=== PATIENT | female | born 1960 | race Caucasian/White ===

== ENCOUNTER 2017-05-08 09:57 | Outpatient (CLI) | payer SELFPAY ==
[~2017-05-08] VITALS: Ht 154.9 cm; Wt 103.6 kg
[2017-05-08 09:57] VITALS: BP 115/79; PULSE 73; RESP 18; Ht 154.9 cm; Wt 103.6 kg
[2017-05-08] MEDS ORDERED: ONDA4TAB95 PO (10:05)
[2017-05-08] MEDS ORDERED: LOSA1TAB21 PO (10:05)
--- NOTE | 2017-05-08 12:26 | CONS ---
DATE OF SERVICE: 05/08/2017 SUBJECTIVE: The patient returns today after undergoing laparoscopic cholecystectomy at [facility] on 04/22/2017 for chronic cholecystitis and cholelithiasis. Overall, she is doing well. No major complaints. Minor complaints of feeling bloated and some discomfort to her back. No fever, no chills. She has been able to eat well and otherwise does not have any other complaints. OBJECTIVE: VITAL SIGNS: Afebrile. Vital signs are stable. ABDOMEN: Abdomen appears to be soft, nontender and nondistended. Her incisions appear to be healing well without any evidence of erythema, edema, discharge or hernia. There is no peritoneal signs of guarding. SKIN: Her skin appears to be pink and feels warm to touch. NEUROLOGIC: She is awake, alert and follows commands appropriately. IMPRESSION AND PLAN: Very pleasant 56-year-old lady status post laparoscopic cholecystectomy at [facility] on 05/02/2017 for chronic cholecystitis and cholelithiasis. She is doing well postoperatively without any obvious evidence of major complications or surgical site infections. I have recommended that she observes her symptoms and if you symptoms continue, for us to then do laboratory value checks, as well as imaging. She also asked me about hemorrhoids and I suggested that she increase the amount of fiber in her diet, as well as addition of Metamucil as necessary with the goal of having one good soft bulky bowel movement per day. This should alleviate more of her symptoms from her hemorrhoids. If she needs further intervention, I recommended that she follow up with a product delivery specialist or one of our general surgery colleagues who has the right equipment for banding, which can be done in-house in the office setting and not require general anesthesia and a formal hemorrhoidectomy. I am happy to assist with a formal hemorrhoidectomy if that was to be determined. We also discussed permanent changes in her lifestyle and ways to achieve those with the goal of bringing her BMI down to between 18 to 24. I answered all questions. The patient appeared to understand and agreed with plans. Note that there was no family present in the room with her. With the above assessment, I have recommended the followin. Follow up with primary care physician. 2. Follow up with us p.r.n. 3. Increase fiber in the diet with the goal of having one good bulky soft bowel movement per day. 4. Follow up with primary care doctor for hemorrhoidal complaints. Thank you again for allowing us to participate in the care of this very pleasant lady and her wonderful family. If there are any questions, please feel free to contact me at [phone]. Dictated By: Jorge Russ MD /[email or web address] /Document#: [id number] ; Dr. Daphne LAROSE
== END 2017-05-08 17:00 | disposition home or self-care (01) ==
LOC: HPC 09:57
PROVIDERS: ATTEND Transplant Surgery
DX: K80.10 Calculus of gallbladder with chronic cholecystitis without obstruction (principal)
CPT/HCPCS: G0463